=== PATIENT | male | born 1975 | race Caucasian/White ===

== ENCOUNTER → 2021-08-13 14:33 | Outpatient (BNVA) | payer MEDICARE, MEDICAID, SELFPAY | PROVIDERS: Visit Provider Specialist | DX: G40.802 Other epilepsy, not intractable, without status epilepticus (principal); F31.9 Bipolar disorder, unspecified; Z86.16 Personal history of COVID-19 | CPT/HCPCS: 99214; 99215 ==

== ENCOUNTER → 2022-08-12 15:17 | Outpatient (BNVA) | payer MEDICARE, MEDICAID, SELFPAY | PROVIDERS: Visit Provider Specialist | DX: G40.802 Other epilepsy, not intractable, without status epilepticus (principal); G47.10 Hypersomnia, unspecified; G47.33 Obstructive sleep apnea (adult) (pediatric); F31.9 Bipolar disorder, unspecified; G40.409 Other generalized epilepsy and epileptic syndromes, not intractable, without status epilepticus | CPT/HCPCS: 80175; 99214 ==

== ENCOUNTER → 2023-08-10 14:14 | Outpatient (BNVA) | payer OTHER, MEDICAID, SELFPAY | PROVIDERS: Visit Provider Specialist | DX: G40.802 Other epilepsy, not intractable, without status epilepticus (principal); G47.10 Hypersomnia, unspecified; G47.33 Obstructive sleep apnea (adult) (pediatric); F31.9 Bipolar disorder, unspecified; G40.309 Generalized idiopathic epilepsy and epileptic syndromes, not intractable, without status epilepticus; G45.9 Transient cerebral ischemic attack, unspecified | CPT/HCPCS: 99215 ==

== ENCOUNTER → 2024-08-31 11:01 | Outpatient (BNVA) | payer OTHER, MEDICAID, SELFPAY | PROVIDERS: Visit Provider Specialist | DX: G40.802 Other epilepsy, not intractable, without status epilepticus (principal); G47.10 Hypersomnia, unspecified; G47.33 Obstructive sleep apnea (adult) (pediatric); F31.9 Bipolar disorder, unspecified; G40.309 Generalized idiopathic epilepsy and epileptic syndromes, not intractable, without status epilepticus; G45.9 Transient cerebral ischemic attack, unspecified; G24.3 Spasmodic torticollis | CPT/HCPCS: 99214 ==